=== PATIENT | female | born 1955 | race Two or more races ===

== ENCOUNTER 2021-02-15 14:18 | Emergency (ER) | payer OTHER ==
[~2021-02-15] VITALS: Ht 167.6 cm; Wt 78.0 kg
[2021-02-15] MEDS ORDERED: AMLODIPINE-OLM1 EAC2 (14:44)
[2021-02-15] MEDS ORDERED: ECOTRIN325 M1 (14:44)
[2021-02-15] MEDS ORDERED: CRESTOR5 MG (14:44)
[2021-02-15] MEDS ORDERED: HYDROCHLOROTHIA25 MG (14:44)
[2021-02-15] MEDS ORDERED: MAGNESIUM200 MG (14:45)
[2021-02-15] MEDS ORDERED: MECLIZINE HCL25 M1 PO (18:21)
== END 2021-02-15 18:35 | disposition home or self-care (01) ==
LOC: ER 14:18
DX: R42 Dizziness and giddiness (principal); Z20.822 Contact with and (suspected) exposure to COVID-19